=== PATIENT | female | born 1985 | race Caucasian/White ===

== ENCOUNTER 2019-11-09 23:58 | Inpatient (IN) ==
[2019-11-10] MEDS ORDERED: Lactated Ringers 1000 ml BAG 1,000 ML IV ONE ×2 (00:14→05:47)
[2019-11-10 00:32] LABS: ABS Basophils 0.1 10^3/ul (0-0.2); ABS Lymphocytes 1.1 10^3/ul (1.0-4.8); ABS Monocytes 0.9 10^3/ul (0-0.8); ABS Neutrophils 15.1 10^3/ul (1.5-7.7); Hematocrit 39 % (35-47); Hemoglobin 13.7 g/dL (12.0-16.0); Lymphocyte % 6.6 %; Mean Corpuscular HGB Conc 35 g/dL (31-36); Mean Corpuscular Hemoglobin 30 pg (27-31); Mean Corpuscular Volume 86 fL (80-97); Mean Platelet Volume 8.8 fL (7.4-10.4); Platelet Count 200 10^3/uL (150-450); Red Blood Count 4.59 10^6 /uL (3.70-4.87); Red Cell Distribution Width 14 % (10-15); White Blood Count 17.2 10^3/uL (3.5-10.8)
[2019-11-10] MEDS ORDERED: Oxytocin in LR 20 UNITS/1,000 ML BAG IVPB ONE (00:55)
[2019-11-10] MEDS ORDERED: Lactated Ringers 1000 ml BAG 1,000 ML IV SCH ×2 (01:00→06:00)
[2019-11-10 02:33] LABS: Urine Benzodiazepine Screen None Detected (None Detect); Urine Cannabinoids Screen None Detected (None Detect); Urine Opiates Screen None Detected (None Detect)
[2019-11-10] MEDS ORDERED: fentaNYL 100 mcg/2 ml 50 MCG/ML VIAL ONE (04:53)
[2019-11-10] MEDS ORDERED: Bupivacaine 0.5% SDV PF 30ML VIAL ONE (04:53)
[2019-11-10] MEDS ORDERED: OBEPIDURAL 250 ML EPIDURAL ONE (05:00)
[2019-11-10] MEDS ORDERED: Sodium Citrate/Citric Acid LIQ 15 ML UDC PO PRN (05:47)
[2019-11-10] MEDS ORDERED: Lactated Ringers 1000 ml BAG 500 ML IV PRN ×2 (05:47)
[2019-11-10] MEDS ORDERED: Phenylephrine 40 mcg/mL 10mL (400mcg) SYRINGE IV PUSH PRN ×2 (05:47)
[2019-11-10] MEDS ORDERED: OBEPIDURAL 250 ML EPIDURAL SCH (06:00)
[2019-11-10] MEDS ORDERED: Lidocaine 2% w/ EPI 1:200,000 MPF 20 ML SDV VIAL ONE (06:21)
[2019-11-10] MEDS ORDERED: Oxytocin in LR 20 UNITS/1,000 ML BAG IVPB SCH (07:00)
[2019-11-10] MEDS ORDERED: Witch Hazel PAD JAR ONE (14:28)
[2019-11-10] MEDS ORDERED: Dibucaine 1% OINT 28.35 GM TUBE ONE (14:28)
[2019-11-11 12:12] VITALS: BP 104/67
== END 2019-11-11 16:40 | disposition home or self-care (01) | DRG 560 ==
LOC: MCHOBOUT 23:58 → MCHOB 11-10 00:08
PROVIDERS: ADMIT Obstetrics & Gynecology; ATTEND Obstetrics & Gynecology